=== PATIENT | female | born 1955 | race Native Hawaiian/Other Pacific Islander ===

== ENCOUNTER 2016-04-24 17:35 | Emergency (ER) | payer BC ==
[~2016-04-24] VITALS: Ht 165.1 cm; Wt 63.5 kg
[2016-04-24 17:50] VITALS: BP 178/88; TEMP 98
== END 2016-04-24 18:01 | disposition home or self-care (01) ==
LOC: ED 17:35
DX: R10.84 Generalized abdominal pain (principal)
CPT/HCPCS: 99282

== ENCOUNTER 2016-04-30 10:42 | Outpatient (CLI) | payer BC | END 2016-04-30 11:42 | disposition home or self-care (01) | LOC: RAD 10:42 | DX: Z12.31 Encounter for screening mammogram for malignant neoplasm of breast (principal) | CPT/HCPCS: G0202-TC ==

== ENCOUNTER 2016-05-21 11:14 | Day surgery (SDC) | payer BC | END 2016-05-21 15:46 | disposition home or self-care (01) | LOC: OR 11:14 | PROC: 0DBN8ZZ Excision of Sigmoid Colon, Via Natural or Artificial Opening Endoscopic (ICD-10-PCS; principal; 2016-05-21) | DX: D12.5 Benign neoplasm of sigmoid colon (principal); K64.8 Other hemorrhoids; Z86.010 Personal history of colon polyps; R10.30 Lower abdominal pain, unspecified; R19.4 Change in bowel habit | CPT/HCPCS: J2704 ==

== ENCOUNTER 2016-12-26 17:13 | Emergency (ER) | payer BC, OTHER ==
[~2016-12-26] VITALS: Ht 162.6 cm; Wt 73.5 kg
[2016-12-26 17:38] VITALS: BP 134/78; TEMP 98.3
== END 2016-12-26 18:29 | disposition home or self-care (01) ==
LOC: ED 17:13
DX: S61.211A Laceration without foreign body of left index finger without damage to nail, initial encounter (principal); W26.8XXA Contact with other sharp object(s), not elsewhere classified, initial encounter; Y92.414 Local residential or business street as the place of occurrence of the external cause
CPT/HCPCS: 90471; 90715; 96372; 99283; J0696

== ENCOUNTER 2019-01-19 15:10 | Outpatient (CLI) | payer BC, OTHER | END 2019-01-19 21:26 | disposition home or self-care (01) | LOC: MAMMO 15:10 | DX: Z12.31 Encounter for screening mammogram for malignant neoplasm of breast (principal) ==

== ENCOUNTER 2019-01-20 07:45 | Outpatient (CLI) | payer OTHER | END 2019-01-20 20:39 | disposition home or self-care (01) | LOC: CT 07:45 | DX: R10.31 Right lower quadrant pain (principal) | CPT/HCPCS: Q9963 ==

== ENCOUNTER 2019-03-23 09:12 | Day surgery (SDC) | payer OTHER ==
[2019-03-23 09:59] LABS: POTASSIUM 3.8 mmol/L (3.6-5.2)
[2019-03-23 10:07] LABS: PLATELET COUNT 215 K/uL (152-353)
== END 2019-03-23 13:52 | disposition home or self-care (01) ==
LOC: OR 09:12
PROVIDERS: Internal Medicine Gastroenterology
PROC: 0DJD8ZZ Inspection of Lower Intestinal Tract, Via Natural or Artificial Opening Endoscopic (ICD-10-PCS; principal; 2019-03-23)
DX: K64.8 Other hemorrhoids (principal); R10.30 Lower abdominal pain, unspecified; Z86.010 Personal history of colon polyps
CPT/HCPCS: 80053; 85027; J2001; J2250; J2405; J2704; J2765

== ENCOUNTER 2020-08-17 11:00 | Outpatient (CLI) | payer OTHER | END 2020-08-17 20:06 | disposition home or self-care (01) | LOC: MAMMO 11:00 | PROVIDERS: ATTEND Nurse Practitioner Family | DX: Z12.31 Encounter for screening mammogram for malignant neoplasm of breast (principal) ==

== ENCOUNTER 2021-05-15 15:45 | Outpatient (CLI) | payer OTHER, MEDICARE | END 2021-05-15 19:28 | disposition home or self-care (01) | LOC: RAD 15:45 | PROVIDERS: ATTEND Nurse Practitioner Family | DX: J20.9 Acute bronchitis, unspecified (principal) ==

== ENCOUNTER 2021-08-23 09:47 | Outpatient (CLI) | payer OTHER | END 2021-08-23 20:26 | disposition home or self-care (01) | LOC: MAMMO 09:47 | PROVIDERS: ATTEND Nurse Practitioner Family | DX: Z12.31 Encounter for screening mammogram for malignant neoplasm of breast (principal) ==

== ENCOUNTER 2022-08-25 08:24 | Outpatient (CLI) | payer OTHER | END 2022-08-25 18:50 | disposition home or self-care (01) | LOC: MAMMO 08:24 | PROVIDERS: ATTEND Nurse Practitioner Family | DX: Z12.31 Encounter for screening mammogram for malignant neoplasm of breast (principal) ==